=== PATIENT | male | born 1995 | race Caucasian/White ===

== ENCOUNTER 2017-03-16 20:38 | Emergency (ER) | payer MEDICAID ==
[~2017-03-16] VITALS: Ht 170.2 cm; Wt 89.8 kg
[~2017-03-16 20:38] MED LIST: ALBUTEROL200 PUFFS/ IH; AUGMENTIN1 TA2 PO; PREDNISONE50 MG PO
--- NOTE | 2017-03-16 21:03 | Emergency Room Report ---
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 N Clinical Suspician of Infection? N Mental Status: 1 - Regular (Normal Baseline) Sepsis Risk:Low Sepsis Risk Have you (or family members/close friends) recently traveled outside the [place]? N If Yes, where/when: Have you had exposure to infectious disease within the past month? N TB? Other? Specify: Source patient, RN notes reviewed, family, old records Exam Limitations no limitations Comment using manual tool and hit rock and tool hit rt ant chest yesterday with pain with certain mov and deep insp - no loc or open wd Cardiac Chest Pain Chest pain indicative of cardiac No Timing/Duration this evening Severity moderate ALLERGIES Coded Allergies: MDX - SULFA (sulfonamide) (SULFA (SULFONAMIDE)) (06/01/15) Home Medications Reported Medications No Known Home Medications History Medical History General CAD? No Angina: No CA: No Hypertension? No Hyperlipidemia? No CHF? No DVT? No PE? No COPD? No Asthma? Yes Anemia? No GERD? No Gastric ulcers? No GI Bleed? No Hernia? No Thyroid Problems? No Hypothyroidism? No CVA? No Seizures? No Diabetes? No Insulin Dependent: No Insulin Pump: No Home FSBS? No Renal Insuffiency? No End Stage Renal Disease? No UTI? No Stones? No BPH? No GB Disease: No Nephritic Syndrome? No Asplenia? No Hepatitis? No Sickle Cell Disease? No Arthritis? No Migraines? No Cataracts? No Glaucoma? No MRSA? No HIV? No TB? No Anxiety? No Depression? No Cancer? No More? No Immunization Hx DT/Tetanus 1-4 Years Ago Surgical Hx Previous Surgery?N Social History Smoking Hx Smoker: Current Every Day Smoker Tobacco: Yes Type Cigarettes Packs/day < 1 Pack Alcohol Alcohol: No Drugs none Review of Systems All Other Systems Reviewed and Negative Constitutional denies fever Eyes denies drainage ENT denies: ear pain, epistaxis, throat pain. Respiratory denies cough, denies shortness of breath, denies wheezing Cardiovascular see HPI, chest pain, denies palpitations, denies syncope Gastrointestinal denies abdominal pain, denies nausea, denies vomiting Genitourinary denies: dysuria, frequency, hesitancy, hematuria. Musculoskeletal denies back pain, denies joint pain, denies joint swelling, denies neck pain Skin denies rash Psychiatric/Neurological denies headache Physical Exam Vital Signs Vital Signs Date Time Temp Pulse Resp B/P Pulse O2 O2 Flow FiO2 Ox Delivery Rate 03/16 2048 98.0 59 16 120/70 96 - WBC >12,000 or <4,000 or 10% bands? 2 or more SIRS Criteria Met? B/P:120/70 MAP:86 Creatinine >2.0? UA output<0.5ml/kg/hr for 2 hrs? Platelet count >100,000? Lactate >2.0mmol/1? INR >1.2 or PTT > than 60 sec? Evidence of Organ Dysfunction? Provider documented clinical suspician of infection? N Sepsis Criteria Count: 0 Sepsis Risk: Low Sepsis Risk General Appearance no apparent distress Eye Exam - bilateral eye PERRL, bilateral eye EOMI Ear, Nose, Throat normal ENT inspection Neck supple Respiratory Status No: respiratory distress. Lung Sounds bilateral: lungs clear. 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 No Results/Orders Orders Procedure Date/time Status CHEST(2 VIEWS-NOT PORTABLE) 03/16 2059 Active XRAY/CT/US XRAY/CT/US XRAY chest XR interpretation by reviewed by me Xray Results normal/NAD Departure Departure Time of Disposition 2117 Disposition DC Home or Self Care(routine) Clinical Impression Primary Impression: Chest wall contusion Qualifiers: Encounter type: initial encounter Laterality: unspecified laterality Qualified Code: S20.219A - Contusion of unspecified front wall of thorax, initial encounter Condition STABLE Patient Instructions DI for Contusion Additional Instructions use meds and see pcp for follow up Discharge Counseling Counseled pt/family regarding diagnosis, test results, medications/RX, follow up needs Prescriptions Current Visit Scripts Meloxicam (Mobic 7.5MG) 7.5 MG PO DAILY #7 TAB ED Critical Care Critical Care No at 1714
--- NOTE | 2017-03-16 21:03 | Emergency Room Report ---
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 N Clinical Suspician of Infection? N Mental Status: 1 - Regular (Normal Baseline) Sepsis Risk:Low Sepsis Risk Have you (or family members/close friends) recently traveled outside the [place]? N If Yes, where/when: Have you had exposure to infectious disease within the past month? N TB? Other? Specify: Source patient, RN notes reviewed, family, old records Exam Limitations no limitations Comment using manual tool and hit rock and tool hit rt ant chest yesterday with pain with certain mov and deep insp - no loc or open wd Cardiac Chest Pain Chest pain indicative of cardiac No Timing/Duration this evening Severity moderate ALLERGIES Coded Allergies: MDX - SULFA (sulfonamide) (SULFA (SULFONAMIDE)) (06/01/15) Home Medications Reported Medications No Known Home Medications History Medical History General CAD? No Angina: No [place]: No Hypertension? No Hyperlipidemia? No CHF? No DVT? No PE? No COPD? No Asthma? Yes Anemia? No GERD? No Gastric ulcers? No GI Bleed? No Hernia? No Thyroid Problems? No Hypothyroidism? No CVA? No Seizures? No Diabetes? No Insulin Dependent: No Insulin Pump: No Home FSBS? No Renal Insuffiency? No End Stage Renal Disease? No UTI? No Stones? No BPH? No GB Disease: No Nephritic Syndrome? No Asplenia? No Hepatitis? No Sickle Cell Disease? No Arthritis? No Migraines? No Cataracts? No Glaucoma? No MRSA? No HIV? No TB? No Anxiety? No Depression? No Cancer? No More? No Immunization Hx DT/Tetanus 1-4 Years Ago Surgical Hx Previous Surgery?N Social History Smoking Hx Smoker: Current Every Day Smoker Tobacco: Yes Type Cigarettes Packs/day < 1 Pack Alcohol Alcohol: No Drugs none Review of Systems All Other Systems Reviewed and Negative Constitutional denies fever Eyes denies drainage ENT denies: ear pain, epistaxis, throat pain. Respiratory denies cough, denies shortness of breath, denies wheezing Cardiovascular see HPI, chest pain, denies palpitations, denies syncope Gastrointestinal denies abdominal pain, denies nausea, denies vomiting Genitourinary denies: dysuria, frequency, hesitancy, hematuria. Musculoskeletal denies back pain, denies joint pain, denies joint swelling, denies neck pain Skin denies rash Psychiatric/Neurological denies headache Physical Exam Vital Signs Vital Signs Date Time Temp Pulse Resp B/P Pulse O2 O2 Flow FiO2 Ox Delivery Rate 03/16 2048 98.0 59 16 120/70 96 - WBC >12,000 or <4,000 or 10% bands? 2 or more SIRS Criteria Met? B/P:120/70 MAP:86 Creatinine >2.0? UA output<0.5ml/kg/hr for 2 hrs? Platelet count >100,000? Lactate >2.0mmol/1? INR >1.2 or PTT > than 60 sec? Evidence of Organ Dysfunction? Provider documented clinical suspician of infection? N Sepsis Criteria Count: 0 Sepsis Risk: Low Sepsis Risk General Appearance no apparent distress Eye Exam - bilateral eye PERRL, bilateral eye EOMI Ear, Nose, Throat normal ENT inspection Neck supple Respiratory Status No: respiratory distress. Lung Sounds bilateral: lungs clear. 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 No Results/Orders Orders Procedure Date/time Status CHEST(2 VIEWS-NOT PORTABLE) 03/16 2059 Active XRAY/CT/US XRAY/CT/US XRAY chest XR interpretation by reviewed by me Xray Results normal/NAD Departure Departure Time of Disposition 2117 Disposition DC Home or Self Care(routine) Clinical Impression Primary Impression: Chest wall contusion Qualifiers: Encounter type: initial encounter Laterality: unspecified laterality Qualified Code: S20.219A - Contusion of unspecified front wall of thorax, initial encounter Condition STABLE Patient Instructions DI for Contusion Additional Instructions use meds and see pcp for follow up Discharge Counseling Counseled pt/family regarding diagnosis, test results, medications/RX, follow up needs Prescriptions Current Visit Scripts Meloxicam (Mobic 7.5MG) 7.5 MG PO DAILY #7 TAB ED Critical Care Critical Care No at 9221
--- OUTSIDE RECORDS SUMMARY | 2017-03-16 21:18 | External Medical Summary Rpt ---
Author Author , JESSIE ROMAN Address Unknown Phone [email or web address] Care Team Providers Care Flat Cutter Name Role Phone LUNA EDIE, LUNA EDIE Unavailable Unavailable LUNA EDIE, LUNA EDIE Unavailable Unavailable LUNA, BREECE, LUNA, Unavailable Unavailable BREECE MITCH GRE, Unavailable Unavailable MITCH GRE MITCH GRE, Unavailable Unavailable MITCH GRE TISH MEJIA, Unavailable Unavailable TISH MEJIA [facility] Unavailable Unavailable #[id number], [facility] Purpose Continuity of Care Document - 06-22-2009 through 2016 Problems Code Diagnosis DOS Provider Status 3670 HYPERMETROP 12-06-2010 MITCH [place] GRE 7231 CERVICALGIA 11-23-2010 LUNA EDIE 7241 PAIN IN 11-23-2010 LUNA EDIE THORACIC SPINE 7391 NONALLOPATH 11-23-2010 LUNA EDIE IC LESION OF CERVICAL REGION NEC 7392 NONALLOPATH 11-23-2010 LUNA EDIE IC LESION OF THORACIC REGION NEC Medications Na ND Rx Da Fi Fi Am Da Di Ph RX Ph St me C No te ll ll ou ys ag ar # ys at rm s nt no ma ic us Or Da si cy ia de te s n re d [place] 00 10 10 00 6. 5 [place] 70 SA Ac IT 78 -1 -2 00 L- 07 MA ti HR 11 1- 2- 0 MA 33 DI ve OM 49 20 20 RT 5 YC 66 09 09 IN 8 PH JA AR YA 25 MA 0 CY MG #4 TA [address] 00 10 10 00 19 7 WA 70 SA Ac ED 59 -1 -2 .0 L- 07 MA ti NI 15 1- 2- 00 MA 33 DI ve SO 44 20 20 RT 6 NE 20 09 09 1 PH JA 10 AR YA MA MG CY TA #[address] 00 10 10 00 6. 28 [place] 70 SA Ac OV 08 -1 -2 70 L- 07 MA ti EN 51 1- 2- 0 MA 34 DI ve TI 13 20 20 RT 6 L 20 09 09 HF 1 PH JA A AR YA 90 MA CY MC G #4 IN 93 PARADA LE R Procedures Procedure DOS Code Location Performer Comment DETERMINA 69575 MITCH MEYER TION 1 [place] FARRIS REFRACTIV E STATE OPHTH 86372 MITCH MEYER MEDICAL 1 K[place] FARRIS XM&EVAL COMPRE NEW PT 1/> VST APPL 73933 LUNA EDIE LUNA EDIE MODALITY 1 1/> AREAS TRACTION MECHANICA L APPL 35565 LUNA EDIE LUNA EDIE MODALITY 1 1/> AREAS ELEC STIMJ UNATTENDE D CHIROPRAC 43330 LUNAFELIPE IRIZARRY LUNA EDIE TIC 1 MANIPULAT [place] SPINAL 3-4 REGIONS CHIROPRAC 71237 CHERYL LUNA, TIC 0 BREECE BREECE MANIPULAT [place] SPINAL 3-4 REGIONS APPL 87824 CHERYL LUNA, MODALITY 0 BREECE BREECE 1/> AREAS ELEC STIMJ UNATTENDE D APPL 72702 CHERYL LUNA, MODALITY 0 BREECE BREECE 1/> AREAS TRACTION MECHANICA L APPL 21125 CHERYL LUNA, MODALITY 0 BREECE BREECE 1/> AREAS TRACTION MECHANICA L APPL 28584 CHERYL LUNA, MODALITY 0 BREECE BREECE 1/> AREAS ELEC STIMJ UNATTENDE D CHIROPRAC 37214 CHERYL LUNA, TIC 0 BREECE BREECE MANIPULAT [place] SPINAL 3-4 REGIONS FITTING 09382 BENY MEJIA, SPECTACLE 9 VISION TISH M S XCPT APHAKIA MONOFOCAL SPHERE V2100 BENY MEJIA, SINGLE 9 VISION TISH M VISION PLANO +/- 4.00 PER LENS OPHTH 22701 BENY MEJIA MEDICAL 9 VISION TISH M XM&EVAL COMPRE NEW PT 1/> VST FRAMES V2020 BENY MEJIA, PURCHASES 9 VISION TISH M
--- OUTSIDE RECORDS SUMMARY | 2017-03-16 21:18 | External Medical Summary Rpt ---
Author Author , JESSIE ROMAN Address Unknown Phone [email or web address] Care Team Providers Care Coin Machine Operator Name Role Phone LUNA EDIE, LUNA EDIE [...] CY MG #4 TA 93 [address] ET [place] 00 10 10 00 19 7 WA 70 SA Ac ED 59 -1 -2 .0 L- 07 MA ti NI 15 1- 2- 00 MA 33 DI ve SO 44 20 20 RT 6 NE 20 09 09 1 PH JA 10 AR YA MA MG CY TA #4 BL 93 ET [place] 00 10 10 00 6. 28 WA [...] Procedure DOS Code Location Performer Comment DETERMINA 49677 MITCH MEYER TION 1 [place] FARRIS REFRACTIV E STATE OPHTH 74239 MITCH MEYER MEDICAL 1 [place] FARRIS XM&EVAL COMPRE NEW PT 1/> VST APPL 58721 LUNA EDIE LUNA EDIE MODALITY 1 1/> AREAS TRACTION MECHANICA L APPL 78862 LUNA EDIE LUNA EDIE MODALITY 1 1/> AREAS ELEC STIMJ UNATTENDE D CHIROPRAC 51472 LUNAFELIPE IRIZARRY LUNA EDIE TIC 1 MANIPULAT [place] SPINAL 3-4 REGIONS CHIROPRAC 98424 CHERYL LUNA, TIC 0 BREECE BREECE MANIPULAT [place] SPINAL 3-4 REGIONS APPL 62493 CHERYL LUNA, MODALITY 0 BREECE BREECE 1/> AREAS ELEC STIMJ UNATTENDE D APPL 39397 CHERYL LUNA, MODALITY 0 BREECE BREECE 1/> AREAS TRACTION MECHANICA L APPL 69502 CHERYL LUNA, MODALITY 0 BREECE BREECE 1/> AREAS TRACTION MECHANICA L APPL 12082 CHERYL LUNA, MODALITY 0 BREECE BREECE 1/> AREAS ELEC STIMJ UNATTENDE D CHIROPRAC 78234 CHERYL LUNA, TIC 0 BREECE BREECE MANIPULAT [place] SPINAL 3-4 REGIONS FITTING 72876 BENY MEJIA, SPECTACLE 9 VISION TISH M S XCPT APHAKIA MONOFOCAL SPHERE V2100 BENY MEJIA, SINGLE 9 VISION TISH M VISION PLANO +/- 4.00 PER LENS OPHTH 51588 BENY MEJIA MEDICAL 9 VISION TISH M XM&EVAL COMPRE NEW PT 1/> VST FRAMES V2020 BENY MEJIA, PURCHASES 9 VISION TISH M
--- OUTSIDE RECORDS SUMMARY | 2017-03-16 21:19 | External Medical Summary Rpt ---
Author Author , JESSIE ROMAN Address Unknown Phone [email or web address] Care Team Providers Care As400 Operator Name Role Phone LUNA EDIE, LUNA EDIE Unavailable Unavailable LUNA EDIE, LUNA EDIE Unavailable Unavailable LUNA, BREECE, LUNA, Unavailable Unavailable BREECE MITCH GRE, Unavailable Unavailable MITCH GRE MITCH GRE, Unavailable Unavailable MITCH GRE SCIFRES, TISH M, Unavailable Unavailable SCIFRES, TISH M [facility] Unavailable Unavailable #493, [facility] [...] BL ET CT 00 10 10 00 6. 28 WA 70 SA Ac OV 08 -1 -2 70 L- 07 MA ti EN 51 1- 2- 0 MA 34 DI ve TI 13 20 20 RT 6 L 20 09 09 HF 1 PH JA A AR YA 90 MA CY MC G #4 IN [address] 00 10 10 00 19 7 WA 70 SA Ac ED 59 -1 -2 .0 L- 07 MA ti NI 15 1- 2- 00 MA 33 DI ve SO 44 20 20 RT 6 NE 20 09 09 1 PH JA 10 AR YA MA MG CY TA #4 BL 93 ET Procedures Procedure DOS Code Location Performer Comment OPHTH 11144 MITCH AGUILERAALL MEDICAL 1 [place] GRE XM&EVAL COMPRE NEW PT 1/> VST DETERMINA 90889 MITCH MEYER TION 1 [place] FARRIS REFRACTIV E STATE CHIROPRAC 42703 LUNAFELIPE IRIZARRY LUNA EDIE TIC 1 MANIPULAT [place] SPINAL 3-4 REGIONS APPL 21595 LUNA EDIE LUNA EDIE MODALITY 1 1/> AREAS TRACTION MECHANICA L APPL 04231 LUNA EDIE LUNA EDIE MODALITY 1 1/> AREAS ELEC STIMJ UNATTENDE D CHIROPRAC 27069 CHERYL LUNA, TIC 0 BREECE BREECE MANIPULAT [place] SPINAL 3-4 REGIONS APPL 56870 CHERYL LUNA, MODALITY 0 BREECE BREECE 1/> AREAS ELEC STIMJ UNATTENDE D APPL 78554 CHERYL LUNA, MODALITY 0 BREECE BREECE 1/> AREAS TRACTION MECHANICA L APPL 06361 CHERYL LUNA, MODALITY 0 BREECE BREECE 1/> AREAS TRACTION MECHANICA L CHIROPRAC 96413 CHERYL LUNA, TIC 0 BREECE BREECE MANIPULAT [place] SPINAL 3-4 REGIONS APPL 34018 CHERYL LUNA, MODALITY 0 BREECE BREECE 1/> AREAS ELEC STIMJ UNATTENDE D OPH 62723 BENY MEJIA, MEDICAL 9 VISION TISH M XM&EVAL COMPRE NEW PT 1/> VST FRAMES V2020 BENY MEJIA, PURCHASES 9 VISION TISH M SPHERE V2100 BENY ROBERTO, SINGLE 9 VISION TISH M VISION PLANO +/- 4.00 PER LENS FITTING 51798 BENY NESSFRFELIPE, SPECTACLE 9 VISION TISH M S XCPT APHAKIA MONOFOCAL
--- OUTSIDE RECORDS SUMMARY | 2017-03-16 21:19 | External Medical Summary Rpt ---
Author Author JESSIE Sampson, [employer] Organization [employer] Address Unknown Phone Unavailable
--- OUTSIDE RECORDS SUMMARY | 2017-03-16 21:19 | External Medical Summary Rpt ---
Author Author , JESSIE ROMAN Address Unknown Phone [email or web address] Care Team Providers Care Open Hearth Worker Name Role Phone LUNA EDIE, LUNA EDIE [...] MITCH IA GRE 7231 CERVICALGIA 11-23-2010 LUNA EIDE 7241 PAIN IN 11-23-2010 LUNA EDIE THORACIC [...] CY MG #4 TA 93 BL ET ID 00 10 10 00 6. 28 WA 70 SA Ac OV 08 -1 -2 70 L- 07 MA ti EN 51 1- 2- 0 MA 34 DI ve TI 13 20 20 RT 6 L 20 09 09 HF 1 PH JA A AR YA 90 MA CY MC G #4 IN 93 PARADA LE R ID 00 10 10 00 19 7 WA 70 SA Ac ED 59 -1 -2 .0 L- 07 MA ti NI 15 1- 2- 00 MA 33 DI ve SO 44 20 20 RT 6 NE 20 09 09 1 PH JA 10 AR YA MA MG CY TA #4 BL 93 ET Procedures Procedure DOS Code Location Performer Comment OPHTH 47844 MITCH AGUILERAALL MEDICAL 1 [place] GRE XM&EVAL COMPRE NEW PT 1/> VST DETERMINA 37864 MITCH MEYER TION 1 [place] FARRIS REFRACTIV E STATE CHIROPRAC 27523 LUNAFELIPE IRIZARRY LUNA EDIE TIC 1 MANIPULAT [place] SPINAL 3-4 REGIONS APPL 57038 LUNA EDIE LUNA EDIE MODALITY 1 1/> AREAS TRACTION MECHANICA L APPL 42280 LUNA EDIE LUNA EDIE MODALITY 1 1/> AREAS ELEC STIMJ UNATTENDE D CHIROPRAC 38663 CHERYL LUNA, TIC 0 BREECE BREECE MANIPULAT [place] SPINAL 3-4 REGIONS APPL 50320 CHERYL LUNA, MODALITY 0 BREECE BREECE 1/> AREAS ELEC STIMJ UNATTENDE D APPL 21860 CHERYL LUNA, MODALITY 0 BREECE BREECE 1/> AREAS TRACTION MECHANICA L APPL 08465 CHERYL LUNA, MODALITY 0 BREECE BREECE 1/> AREAS TRACTION MECHANICA L CHIROPRAC 44807 CHERYL LUNA, TIC 0 BREECE BREECE MANIPULAT [place] SPINAL 3-4 REGIONS APPL 33966 CHERYL LUNA, MODALITY 0 BREECE BREECE 1/> AREAS ELEC STIMJ UNATTENDE D OPH 77297 BENY MEJIA, MEDICAL 9 VISION TISH M XM&EVAL COMPRE NEW PT 1/> VST FRAMES V2020 BENY MEJIA, PURCHASES 9 VISION TISH M SPHERE V2100 BENY ROBERTO, SINGLE 9 VISION TISH M VISION PLANO +/- 4.00 PER LENS FITTING 91326 BENY NESSFRFELIPE, SPECTACLE 9 VISION TISH M S XCPT APHAKIA MONOFOCAL
--- OUTSIDE RECORDS SUMMARY | 2017-03-16 21:19 | External Medical Summary Rpt ---
Demographics Preferred Language Amharic Marital Status Unknown Jehovah'S Witness Affiliation Unknown Race Unknown Ethnic Group Unknown Author Author REYES Address Unknown Phone Immunization No patient found.
--- OUTSIDE RECORDS SUMMARY | 2017-03-16 21:19 | External Medical Summary Rpt ---
Demographics Preferred Language Pashto Marital Status Unknown Baptist Affiliation Unknown Race Unknown Ethnic Group Unknown Author Author REYES Address Unknown Phone Immunization No patient found.
[2017-03-16] MEDS ORDERED: MOBIC7.5 MG PO (21:23)
[2017-03-16 21:40] VITALS: BP 123/66
--- NOTE | 2017-03-17 07:46 | RADIOLOGY REPORT PS360 ---
CHEST(2 VIEWS-NOT PORTABLE) HISTORY: Chest pain following injury INJURY TO RIGHT UPPER CHEST (HIT WITH IRON DIGGER) ORDERING PHYSICIAN: Yari Medina MD PATIENT AGE: 21 years COMPARISON: 06/01/2015 FINDINGS: The cardiomediastinal silhouette and pulmonary vascularity are within normal limits. The lungs are clear without infiltrates, suspicious nodules, or pleural effusions. No acute bony abnormalities. IMPRESSION: Negative chest, no acute finding
== END 2017-03-16 21:40 | disposition home or self-care (01) ==
LOC: ER 20:38
DX: S20.211A Contusion of right front wall of thorax, initial encounter (principal); Z72.0 Tobacco use; W22.8XXA Striking against or struck by other objects, initial encounter; Y92.009 Unspecified place in unspecified non-institutional (private) residence as the place of occurrence of the external cause